=== PATIENT | female | born 1950 | race Caucasian/White ===

== ENCOUNTER → 2017-12-18 14:19 | Outpatient (CLI) | payer MEDICARE, OTHER, SELFPAY ==
--- NOTE | 2017-12-18 14:28 | CT_ITS ---
STUDY: LOW DOSE CT LUNG CANCER SCREENING REASON FOR EXAM: Female, 67 years old. Tobacco use, lung cancer screening. RADIATION DOSAGE (If Supplied By Facility): CTDIvol = ( 4.02 ) mGy, DLP = ( 153 ) mGycm TECHNIQUE: No contrast was administered. Low dose technique was utilized (average mAS-38 and kVp 120). 1.25 mm axial source images with a slice interval of 1.25-mm were reconstructed in lung windows. Coronal and sagittal 2-D MPR Nodule measured using lung windows on PACS and/or independent workstation with automated measurement of minimum and maximum diameter. Nodule measurement reported as average diameter rounded to the nearest whole number. Growth is defined as an increase ins size of greater than 1.5 mm. COMPARISON: None. FINDINGS: Total lung nodules (excluding granulomas): There are a few bilateral tiny scattered calcified and noncalcified pulmonary nodules, measuring less than 3 mm. The largest is subpleural, anterior margin of the right upper lobe anterior segment, series 2 image 131. Emphysema: Features of centrilobular emphysema at the apices with generalized hyperlucency of the lungs consistent with COPD. Endobronchial lesion: None Aorta: Mildly ectatic ascending aorta and proximal arch 3.5 cm, nonaneurysmal. Mild arch atherosclerosis. Coronary arteries: Mild coronary cusp secretions are present in the proximal LAD and proximal RCA. Normal coronary artery origins and branching anatomy. Heart: Normal heart size without effusion. Pulmonary artery: Nondilated. Mediastinal nodes: Normal esophagus. No mediastinal or hilar lymphadenopathy. Other chest and abdominal findings: No other acute upper abdominal or thoracic process. CT/Low Dose CT Lung Screening IMPRESSION: Scattered tiny pulmonary nodules with calcified and noncalcified. Less than 3 mm. ACR Lung RADS Classification, Category 2, benign appearance, less than 1% chance of malignancy, continue annual low dose chest CT screening. IMPORTANT NOTES FOR USE: ACR Lung-RADS Version 1.0 Assessment Categories Release Date: July 27, 2013 Category: Coded 0-4 bases on nodule(s) with highest degree of suspicion. Negative screen is defined as categories 1 and 2; a positive screen is defined as categories 3 and 4. Category 3 and 4A nodules that are unchanged on interval CT should be coded as category 2, and individuals returned to screening in 12 months. Category 4X: Category 3 or 4 nodules with additional imaging findings that increase the suspicion of lung cancer, such as spiculation, GGN that doubles in size in 1 year, enlarged lymph notes, etc. Category Modifiers: S (significant finding unrelated to lung cancer) and C (prior history of treated lung cancer) may be added to the 0-4 Lung-RADS Electronically Signed: Aramis Garcia, at 17:55 EDT Tel , Service support ,
== END ==
PROVIDERS: Family Provider Family Medicine; PCP Family Medicine; Visit Provider Internal Medicine Pulmonary Disease
DX: Z87.891 Personal history of nicotine dependence (principal)
CPT/HCPCS: G0297